=== PATIENT | female | born 1995 | race Caucasian/White ===

== ENCOUNTER 2021-02-21 23:46 | Emergency (ER) | payer OTHER ==
[~2021-02-21] VITALS: Ht 162.6 cm; Wt 68.2 kg
[2021-02-22 00:46] LABS: ALBUMIN 3.4 gm/dL (3.5-5.0); BILIRUBIN,TOTAL 0.3 mg/dL (0.2-1.2); CALCIUM 9.8 mg/dL (8.4-10.2); CREATININE, serum 0.81 mg/dL (0.57-1.11); POTASSIUM 3.7 mmol/L (3.5-4.5); TOTAL PROTEIN 7.5 gm/dL (6.2-8.1)
[2021-02-22 00:46] LABS: COLLECTION METHOD CLEAN CATCH
[2021-02-22 00:51] LABS: PH 7 (5-8); SQUAMOUS EPITHELIAL 0-2 /hpf; URINE APPEARANCE Clear; URINE BACTERIA None Seen /hpf; URINE BILIRUBIN Negative (NEGATIVE); URINE BLOOD 3+ (NEGATIVE); URINE COLOR Yellow; URINE GLUCOSE Negative (NEGATIVE); URINE KETONE Negative (NEGATIVE); URINE LEUKOCYTE ESTERASE Negative (NEGATIVE); URINE NITRATE Negative (NEGATIVE); URINE PROTEIN(semi-quant) Negative (NEGATIVE); URINE RBC 0-2 /hpf; URINE UROBILINOGEN Negative (NEGATIVE); URINE WBC 0-2 /hpf
[2021-02-22 01:11] LABS: BASO # 0.1 (0.0-0.2); BASO % 0.4 % (0.0-2.0); EOS # 0.1 (0.0-0.7); EOS % 1.1 % (0-4.0); GRAN # 9.3 (1.4-6.5); GRAN % 75.7 % (42.2-75.2); HEMOGLOBIN 11.8 g/dl (12.5-16.0); LYMPH # 1.7 (1.2-3.4); LYMPH % 13.9 % (20.0-51.0); MEAN CELL VOLUME 82 fl (80.0-100.0); MEAN CORPUSCULAR HEMOGLOBIN 28 pg (27.0-31.0); MEAN CORPUSCULAR HGB CONC 34 g/dl (33.0-37.0); MEAN PLATELET VOLUME 9.2 fl (7.4-10.4); MONO % 8.5 % (1.7-9.3); PLATELET COUNT 364 K/mm3 (130-400); RED BLOOD COUNT 4.19 M/mm3 (4.10-5.30); REDCELL DISTRIBUTION WIDTH-CV 12.6 % (11.5-14.5)
[2021-02-22 01:15] LABS: HEMATOCRIT 34.3 % (37.0-47.0)
[2021-02-22] MEDS ORDERED: SENNA-LAX8.6 MG PO (02:45)
[2021-02-22] MEDS ORDERED: COLACE 100100 MG/CAP PO (02:45)
[2021-02-22 03:30] VITALS: BP 115/69; PULSE 69; TEMP 98.1
[2021-02-22] MEDS ORDERED: ZITHROMAX 250M250 MG PO (07:35)
[2021-02-22] MEDS ORDERED: DOXYCYCLINE 10100 MG PO (10:08)
== END 2021-02-22 03:25 | disposition home or self-care (01) ==
LOC: COL.ER 23:46
PROVIDERS: Emergency Medicine
DX: K59.00 Constipation, unspecified (principal); Z32.02 Encounter for pregnancy test, result negative
CPT/HCPCS: J1885; J2270; J2405; J7030; Q9967

== ENCOUNTER 2021-10-08 21:22 | Emergency (ER) | payer SELFPAY ==
[~2021-10-08] VITALS: Ht 170.2 cm; Wt 68.2 kg
[~2021-10-08 21:22] MED LIST: COLACE 100100 MG/CAP PO; DOXYCYCLINE 10100 MG PO; SENNA-LAX8.6 MG PO; ZITHROMAX 250M250 MG PO
[2021-10-08 22:38] LABS: BASO # 0.1 K/mm3 (0.0-0.2); BASO % 0.9 % (0.0-2.0); EOS # 0.5 K/mm3 (0.0-0.7); EOS % 6.7 % (0.0-4.0); GRAN # 3.4 K/mm3 (1.4-6.5); GRAN % 50.7 % (42.2-75.2); HEMOGLOBIN 12.2 g/dl (12.5-16.0); LYMPH # 2.3 K/mm3 (1.2-3.4); LYMPH % 33.9 % (20.0-51.0); MEAN CELL VOLUME 84 fl (80.0-100.0); MEAN CORPUSCULAR HEMOGLOBIN 28 pg (27-31); MEAN CORPUSCULAR HGB CONC 33 g/dl (33.0-37.0); MEAN PLATELET VOLUME 9.8 fl (7.4-10.4); MONO # 0.5 K/mm3 (0.1-0.6); MONO % 7.7 % (1.7-9.3); PLATELET COUNT 252 K/mm3 (130-400); RED BLOOD COUNT 4.41 M/mm3 (4.10-5.30); REDCELL DISTRIBUTION WIDTH-CV 13.1 % (11.5-14.5)
[2021-10-08 22:53] LABS: ALBUMIN 3.8 gm/dL (3.5-5.0); ALKALINE PHOSPHATASE 42 U/L (40-150); ANION GAP 12 mmol/L (7-16); AST,SGOT 13 U/L (5-34); BILIRUBIN,TOTAL 0.7 mg/dL (0.2-1.2); BLOOD UREA NITROGEN 8 mg/dL (7-19); CALCIUM 8.5 mg/dL (8.4-10.2); CARBON DIOXIDE 23 mmol/L (22-29); CHLORIDE 108 mmol/L (98-107); CREATININE, serum 0.74 mg/dL (0.57-1.11); GLUCOSE 72 mg/dL (70-99); POTASSIUM 3.7 mmol/L (3.5-4.5); SODIUM 143 mmol/L (136-145); TOTAL PROTEIN 6.6 gm/dL (6.2-8.1)
[2021-10-08 22:54] LABS: ALANINE AMINOTRANSFERASE < 6 U/L (0-55)
[2021-10-09] MEDS ORDERED: TRIAMCINOLONE A15 G3 TP (00:20)
[2021-10-09 00:39] VITALS: BP 98/62; PULSE 54; TEMP 98.5
== END 2021-10-09 00:39 | disposition home or self-care (01) ==
LOC: COL.ER 21:22
PROVIDERS: Nurse Practitioner Family
DX: T78.40XA Allergy, unspecified, initial encounter (principal); L30.1 Dyshidrosis [pompholyx]; Z20.822 Contact with and (suspected) exposure to COVID-19; Z28.311 Partially vaccinated for COVID-19
CPT/HCPCS: J2930